=== PATIENT | female | born 1980 | race Caucasian/White ===

== ENCOUNTER → 2016-11-22 | Outpatient (CLI) | payer OTHER ==
[~2016-11-22] MED LIST: BENTYL20 MG PO; BIAXIN500 MG PO; FLAGYL500 MG PO; LEVSIN-SL0.125 MG SL; LEXAPRO20 MG PO; MINIVELLE1 EACH TD; MOTRIN800 MG PO; NAPROXEN500 MG PO; NORCO 5/3251 TABLET PO; PERCOCET 5/31 TABLET PO; PREDNISONE10 M1 PO; PRILOSEC OTC20 MG PO; PRILOSEC40 MG PO; TYLENOL WITH C1 EACH PO; VALIUM2 MG PO; ZOFRAN ODT4 MG PO
== END | disposition home or self-care (01) ==
LOC: NUC 06:52
DX: R10.11 Right upper quadrant pain (principal); R11.0 Nausea
CPT/HCPCS: 78227; A9537; J2805

== ENCOUNTER 2016-11-23 09:16 | Emergency (ER) | payer OTHER ==
[~2016-11-23] VITALS: Ht 167.6 cm; Wt 69.3 kg
[~2016-11-23 09:16] MED LIST changes: -BENTYL20 MG PO; -LEVSIN-SL0.125 MG SL; -PERCOCET 5/31 TABLET PO; -ZOFRAN ODT4 MG PO
[2016-11-23 10:14] LABS: MCH 31.4 PG (29.0-34.0); MCHC 35.7 G/DL (30.0-36.0); MCV 87.9 FL (83-99); MEAN PLAT.VOLUME 8.5 uM^3 (9.5-12.4); PLATELET COUNT 323 K/uL (156-360); RBC DIS.WIDTH-CV 11.5 % (11.8-14.6); RBC DIS.WIDTH-SD 36.9 % (39-53); RED BLOOD COUNT 4.78 M/uL (3.80-5.20); WHITE BLOOD COUNT 8.2 K/uL (4.1-10.2)
[2016-11-23 10:35] LABS: CHLORIDE 103 mEq/L (99-109); POTASSIUM 3.7 mEq/L (3.7-5.4); SODIUM 137 mEq/L (136-147)
[2016-11-23 10:37] LABS: GLUCOSE 94 mg/dL (70-99)
[2016-11-23 10:38] LABS: ANION GAP 11 MEQ/L (2-14)
[2016-11-23 10:39] LABS: TOTAL BILIRUBIN 0.5 mg/dL (0.0-1.0)
[2016-11-23 10:41] LABS: ALKALINE PHOSPHATASE 72 IU/L (3-129); GFR ESTIMATE (CALCULATED) > 59 mL/min/
[2016-11-23 10:42] LABS: UREA NITROGEN (BUN) 15 mg/dL (9-23)
[2016-11-23 10:52] LABS: QUANTITATIVE HCG < 4.0 MIU/ML
[2016-11-23 11:08] LABS: ADD MIUA? YES; BILIRUBIN NEGATIVE; BLOOD NEGATIVE; COLOR YELLOW ((YELLOW)); GLUCOSE (STRIP) NEGATIVE; KETONES NEGATIVE; LEUKOCYTES NEGATIVE; NITRITE NEGATIVE; PROTEIN (STRIP) NEGATIVE; UROBILINOGEN 0.2 MG/DL (0.2-1.0)
[2016-11-23 11:35] LABS: BACTERIA RARE; CASTS NONE SEEN /LPF; CRYSTALS NONE SEEN; EPITHELIAL CELLS 1+; MUCUS NONE SEEN; RED BLOOD CELLS NONE SEEN /HPF (0-5); UCUL ADDED? NO; WHITE BLOOD CELLS NONE SEEN /HPF (0-5)
[2016-11-23 14:42] LABS: LIPASE 45 U/L (1.0-51.0)
[2016-11-23] MEDS ORDERED: ZOFRAN ODT4 MG PO (15:20)
[2016-11-23] MEDS ORDERED: PERCOCET 5/31 TABLET PO (15:20)
[2016-11-23 15:40] VITALS: BP 106/62
[2016-12-06] MEDS ORDERED: LEVSIN-SL0.125 MG SL (12:40)
== END 2016-11-23 15:41 | disposition home or self-care (01) ==
LOC: EME 09:16
DX: R10.84 Generalized abdominal pain (principal); Z88.1 Allergy status to other antibiotic agents; Z88.0 Allergy status to penicillin
CPT/HCPCS: 76705; 80053; 81003; 83690; 84702; 85027; 99281; 99285; J1170; J2405; J7030

== ENCOUNTER → 2016-12-08 | Outpatient (CLI) | payer OTHER ==
[~2016-12-08] VITALS: Ht 165.1 cm; Wt 68.0 kg
[~2016-12-08] MED LIST changes: +BENTYL20 MG PO; +LEVSIN-SL0.125 MG SL; +PERCOCET 5/31 TABLET PO; +ZOFRAN ODT4 MG PO
== END | disposition home or self-care (01) ==
LOC: AMB 11:59
DX: K83.8 Other specified diseases of biliary tract (principal); D18.03 Hemangioma of intra-abdominal structures; K86.89 Other specified diseases of pancreas; R93.8 Abnormal findings on diagnostic imaging of other specified body structures; R10.11 Right upper quadrant pain; R11.10 Vomiting, unspecified; I10 Essential (primary) hypertension; F17.200 Nicotine dependence, unspecified, uncomplicated
CPT/HCPCS: 74328; 87081; B4087; C1757; C1769; J0330; J2250; J2405; J2765; J3010

== ENCOUNTER 2016-12-09 22:32 | Inpatient (IN) | payer OTHER ==
[~2016-12-09] VITALS: Ht 165.1 cm; Wt 72.5 kg
[~2016-12-09 22:32] MED LIST changes: -BENTYL20 MG PO
[2016-12-09 22:59] LABS: HEMATOCRIT 36.9 % (36.0-46.0); MCH 31.3 PG (29.0-34.0); MCHC 35.5 G/DL (30.0-36.0); MCV 88.3 FL (83-99); MEAN PLAT.VOLUME 8.4 uM^3 (9.5-12.4); PLATELET COUNT 276 K/uL (156-360); RBC DIS.WIDTH-CV 11.4 % (11.8-14.6); RBC DIS.WIDTH-SD 36.3 % (39-53); RED BLOOD COUNT 4.18 M/uL (3.80-5.20); WHITE BLOOD COUNT 9.6 K/uL (4.1-10.2)
[2016-12-09 23:07] LABS: CHLORIDE 106 mEq/L (99-109); POTASSIUM 3.9 mEq/L (3.7-5.4); SODIUM 140 mEq/L (136-147)
[2016-12-09 23:09] LABS: GLUCOSE 106 mg/dL (70-99)
[2016-12-09 23:11] LABS: ANION GAP 9 MEQ/L (2-14); TOTAL BILIRUBIN 0.3 mg/dL (0.0-1.0)
[2016-12-09 23:13] LABS: ALKALINE PHOSPHATASE 58 IU/L (3-129); GFR ESTIMATE (CALCULATED) > 59 mL/min/
[2016-12-09 23:14] LABS: UREA NITROGEN (BUN) 14 mg/dL (9-23)
[2016-12-09 23:22] LABS: QUANTITATIVE HCG < 4.0 MIU/ML
[2016-12-09 23:55] LABS: ADD MIUA? NO; BILIRUBIN NEGATIVE; BLOOD NEGATIVE; COLOR YELLOW ((YELLOW)); GLUCOSE (STRIP) NEGATIVE; KETONES NEGATIVE; LEUKOCYTES NEGATIVE; NITRITE NEGATIVE; PH, URINE 6.5 (5-8); PROTEIN (STRIP) NEGATIVE; SPECIFIC GRAVITY 1.014 (1.000-1.030); UCUL ADDED? NO; UROBILINOGEN 0.2 MG/DL (0.2-1.0)
[2016-12-10 01:20] LABS: LIPASE 136 U/L (1.0-51.0)
[2016-12-10 13:00] VITALS: BP 107/65
[2016-12-10 16:00] VITALS: BP 102/64
[2016-12-10 18:55] VITALS: BP 100/60
[2016-12-10 22:40] VITALS: BP 96/53
[2016-12-11 03:30] VITALS: BP 99/55
[2016-12-11 06:57] LABS: EOSINOPHIL (%) 5.3 % (0-5); EOSINOPHIL COUNT 0.4 K/uL (0-0.3); HEMATOCRIT 34.9 % (36.0-46.0); IMMATURE GRANULOCYTE (%) 0.3 % (0.0-0.7); LYMPHOCYTE COUNT 3.3 K/uL (1.0-2.8); MCH 31.1 PG (29.0-34.0); MCHC 34.4 G/DL (30.0-36.0); MCV 90.4 FL (83-99); MEAN PLAT.VOLUME 9.1 uM^3 (9.5-12.4); MONOCYTE (%) 6.5 % (3-12); MONOCYTE COUNT 0.5 K/uL (0-0.8); NEUTROPHIL (%) 46.2 % (45-76); NEUTROPHIL COUNT 3.7 K/uL (1.8-6.4); PLATELET COUNT 214 K/uL (156-360); RBC DIS.WIDTH-CV 11.8 % (11.8-14.6); RBC DIS.WIDTH-SD 38.4 % (39-53); RED BLOOD COUNT 3.86 M/uL (3.80-5.20); WHITE BLOOD COUNT 7.9 K/uL (4.1-10.2)
[2016-12-11 07:23] LABS: ALKALINE PHOSPHATASE 49 IU/L (3-129); ANION GAP 7 MEQ/L (2-14); CHLORIDE 106 MEQ/L (99-109); GFR ESTIMATE (CALCULATED) > 59 mL/min/; LIPASE 32 U/L (1.0-51.0); POTASSIUM 4.1 MEQ/L (3.7-5.4); SAMPLE HEMOLYSIS CHECK 0; SAMPLE ICTERIC CHECK 0; SAMPLE LIPEMIA CHECK 0; SODIUM 137 MEQ/L (136-147); TOTAL BILIRUBIN 0.6 MG/DL (0.0-1.0); UREA NITROGEN (BUN) 10 mg/dL (9-23)
[2016-12-11 07:24] LABS: GLUCOSE 61 mg/dL (70-99)
[2016-12-11 07:50] VITALS: BP 111/56
[2016-12-11 12:04] VITALS: BP 106/50
[2016-12-11] MEDS ORDERED: BENTYL20 MG PO (12:39)
== END 2016-12-11 13:20 | disposition home or self-care (01) | DRG 392 ==
LOC: RME 22:32 → EME 22:32 → EDOF 12-10 05:12 → 2EASTP 12-10 12:38
PROVIDERS: Hospitalist; Internal Medicine Gastroenterology
DX: R10.11 Right upper quadrant pain (principal); R10.13 Epigastric pain; R11.2 Nausea with vomiting, unspecified; K86.89 Other specified diseases of pancreas; F17.210 Nicotine dependence, cigarettes, uncomplicated; Z88.0 Allergy status to penicillin; Z88.1 Allergy status to other antibiotic agents
CPT/HCPCS: 74177; 80053; 81003; 82948; 83690; 84702; 85025; 85027; 99202; 99281; 99285; J1644; J2270; J2405; J7030